=== PATIENT | female | born 1960 | race Caucasian/White ===

== ENCOUNTER → 2019-09-24 | Outpatient (CLI) | payer BC | LOC: LL.MAM 12:52 | PROVIDERS: ATTEND Nurse Practitioner | DX: Z12.31 Encounter for screening mammogram for malignant neoplasm of breast (principal) | CPT/HCPCS: 77063; 77067 ==

== ENCOUNTER 2020-06-24 08:00 | Day surgery (SDC) | payer BC ==
[~2020-06-24 08:00] MED LIST: Lactated Ringers 1,000 ML IV SCH; Midazolam 1 MG/ML 2 ML SDV ONE; Propofol 200 MG/20 ML SDV ONE; Sodium Chloride 0.9% 10 ML Syringe FLUSH PRN; fentaNYL 100 MCG/2 ML SDV ONE
[2020-06-24] MEDS ORDERED: Ketamine 500 mg/10 ML MDV ONE ×2 (08:17→09:22)
[2020-06-24] MEDS ORDERED: Midazolam 1 MG/ML 2 ML SDV ONE (09:22)
[2020-06-24] MEDS ORDERED: Ondansetron 4 MG/2 ML SDV ONE (09:22)
[2020-06-24] MEDS ORDERED: fentaNYL 100 MCG/2 ML SDV ONE (09:22)
[2020-06-24] MEDS ORDERED: Propofol 200 MG/20 ML SDV ONE (09:22)
--- NOTE | 2020-06-24 09:28 | PCM.HPR ---
H & P Addendum review - H & P Addendum Review Date of Original H & P: 06/10/20 Date Reviewed: 06/24/20 Time Reviewed: 09:27 Patient was Examined: No Changes
--- NOTE | 2020-06-24 10:00 | PCM.OPNOTE ---
- General Post-Op/Procedure Note Date of Surgery/Procedure: 06/24/20 Operative Procedure(s): L CTR Pre Op Diagnosis: L CTS Post-Op Diagnosis: Same Anesthesia Technique: Local, MAC Primary Surgeon: Julien ORTIZ in mLs: 0 Complications: None Condition: Good
[2020-06-24 10:20] VITALS: BP 130/81; PULSE 65
--- NOTE | 2020-06-28 11:14 | OR ---
Date of Procedure: 06/24/2020 PREOPERATIVE DIAGNOSIS: Left carpal tunnel syndrome. POSTOPERATIVE DIAGNOSIS: Left carpal tunnel syndrome. PROCEDURE: Left carpal tunnel release. ANESTHESIA: Local MAC. PROCEDURE IN DETAIL: Patient was brought to the operating room where IV sedation was administered. Left upper extremity was exsanguinated and tourniquet inflated. Her hand was prepped and draped sterilely. 4 mL of 1% lidocaine was used for local anesthesia. Palmar crease was infiltrated and an incision made over the ligament. Incision was extended through the subcutaneous tissue and palmar aponeurosis until the transverse carpal ligament was identified. The ligament was sharply incised until the median nerve was visible. The ligament was split distally into the palm and proximally into the wrist. Finger palpation and inspection revealed all constricting bands to be released. The wound was irrigated and closed with interrupted 4-0 Prolene vertical mattress sutures. Antibiotic ointment and a bulky sterile pressure dressing were applied. Patient tolerated the procedure well. Blood loss, none. She returned to postanesthesia in stable condition. ADELA SANZ MD /[id number]
== END 2020-06-24 11:20 | disposition home or self-care (01) ==
LOC: LL.SDS 08:00
PROVIDERS: ATTEND Surgery
DX: G56.02 Carpal tunnel syndrome, left upper limb (principal)
CPT/HCPCS: 01810; J2001; J2250; J2405; J2704; J3010; J7120

== ENCOUNTER 2020-08-05 07:58 | Day surgery (SDC) | payer BC ==
[2020-08-05] MEDS ORDERED: Sodium Chloride 0.9% 10 ML Syringe FLUSH PRN (08:00)
[2020-08-05] MEDS ORDERED: Lactated Ringers 1,000 ML IV SCH (08:00)
[2020-08-05] MEDS ORDERED: Midazolam 1 MG/ML 2 ML SDV ONE ×2 (08:39→09:28)
[2020-08-05] MEDS ORDERED: Propofol 200 MG/20 ML SDV ONE ×2 (08:39→09:28)
--- NOTE | 2020-08-05 09:39 | PCM.HP.2 ---
H&P History of Present Illness - General Date of Service: 08/05/20 Admit Problem/Dx: Admission Diagnosis/Problem Admission Diagnosis/Problem Carpal tunnel syndrome Source of Information: Patient, Old Records History Limitations: Reports: No Limitations - History of Present Illness Initial Comments - Free Text/Narative: Here for right carpel tunnel release - Related Data Allergies/Adverse Reactions: Allergies Allergy/AdvReac Type Severity Reaction Status Date / Time bacitracin Allergy [place] Verified 08/05/20 08:32 latex Allergy Rash Verified 08/05/20 08:32 moexipril Allergy Cough Verified 08/05/20 08:32 nitrofurantoin Allergy UNKNOWN Verified 08/05/20 08:32 [From Macrobid] nitrofurantoin Allergy UNKNOWN Verified 08/05/20 08:32 macrocrystalline [From Macrobid] prednisone Allergy UNKNOWN Verified 08/05/20 08:32 Sulfa (Sulfonamide Allergy UNKNOWN Verified 08/05/20 08:32 Antibiotics) Home Medications: Home Meds Esomeprazole Magnesium [Nexium] 40 mg PO DAILY 08/11/15 [History] Folic Acid/Vit B Complex and C [Dialyvite] 2 each PO DAILY 08/11/15 [History] Meloxicam 15 mg PO DAILY 08/11/15 [History] metFORMIN [Glucophage XR] 500 mg PO QPM 08/11/15 [History] Citalopram Hydrobromide [Celexa] 20 mg PO DAILY 06/24/20 [History] Famotidine [Pepcid] 40 mg PO BEDTIME 06/24/20 [History] Levothyroxine [Synthroid] 88 mcg PO DAILY 06/24/20 [History] Losartan [Cozaar] 50 mg PO DAILY 06/24/20 [History] Phentermine HCl 1 tab PO DAILY 06/24/20 [History] Rosuvastatin [Crestor] 5 mg PO BEDTIME 06/24/20 [History] metFORMIN HCl [Metformin HCl] 1,000 mg PO QAM 06/24/20 [History] Past Medical History HEENT History: Reports: Other (See Below) Other HEENT History: wears glasses Cardiovascular History: Reports: High Cholesterol, Hypertension Respiratory History: Reports: None Gastrointestinal History: Reports: Cholelithiasis, GERD Genitourinary History: Reports: None Other OB/BYN History: Cervical HPV test postive. Musculoskeletal History: Reports: Osteoarthritis Neurological History: Reports: None Psychiatric History: Reports: Anxiety Endocrine/Metabolic History: Reports: Diabetes, Type II Hematologic History: Reports: None Immunologic History: Reports: None Oncologic (Cancer) History: Reports: None Dermatologic History: Reports: None - Past Surgical History GI Surgical History: Reports: Cholecystectomy, Colonoscopy Female Surgical History: Reports: Section Musculoskeletal Surgical History: Reports: Carpal Tunnel Social & Family History - Tobacco Use Smoking Status *Q: Never Smoker - Caffeine Use Caffeine Use: Reports: Coffee, Tea - Recreational Drug Use Recreational Drug Use: No H&P Review of Systems - Review of Systems: Review Of Systems: Comprehensive ROS is negative, except as noted in HPI. Exam - Exam Exam: See Below - Vital Signs Vital Signs: Last Vital Signs Temp 98.4 F 08/05/20 08:53 Pulse 75 08/05/20 08:53 Resp 18 08/05/20 08:53 BP 165/81 H 08/05/20 08:53 Pulse Ox 98 08/05/20 08:53 Weight: 74.843 kg - Exam General: Alert, Oriented Lungs: Clear to Auscultation, Normal Respiratory Effort Cardiovascular: Regular Rate, Regular Rhythm Sepsis Event Note - Focused Exam Vital Signs: Vital Signs Temp Pulse Resp BP Pulse Ox 08/05/20 08:53 98.4 F 75 18 165/81 H 98 Problem List Initiated/Reviewed/Updated: Yes Orders Last 24hrs: Active Orders 24 hr Category Date Time Status Patient Status [ADT] Routine ADT 08/05/20 08:00 Active Peripheral IV Care [RC] . DIRECTED Care 08/05/20 08:00 Active Verify Patient Consent Obtain [RC] ASDIRECTED Care 08/05/20 08:00 Active Lactated Ringers [Ringers, Lactated] 1,000 ml Med 08/05/20 08:00 Active IV ASDIRECTED Sodium Chloride 0.9% [Saline Flush] Med 08/05/20 08:00 Active 10 ml FLUSH ASDIRECTED PRN Peripheral IV Insertion Adult [OM.PC] Routine Oth 08/05/20 08:00 Ordered Medication Orders Lactated Ringer's (Ringers, Lactated) 1,000 mls @ 125 mls/hr IV ASDIRECTED LEXX Last Admin: 08/05/20 08:51 Dose: 125 mls/hr Documented by: COXTAM Sodium Chloride (Saline Flush) 10 ml FLUSH ASDIRECTED PRN PRN Reason: Keep Vein Open Assessment/Plan Comment:: R CTS Will proceed with R CTR
--- NOTE | 2020-08-05 10:09 | PCM.OPNOTE ---
- General Post-Op/Procedure Note Date of Surgery/Procedure: 08/05/20 Operative Procedure(s): R CTR Pre Op Diagnosis: R CTS Post-Op Diagnosis: Same Anesthesia Technique: Local, MAC Primary Surgeon: Julien Covington Anesthesia Provider: Evelin Black EBMaritza in mLs: 0 Complications: None Condition: Good
--- NOTE | 2020-08-05 11:29 | OR ---
Date of Procedure: 08/05/2020 PREOPERATIVE DIAGNOSIS: Right carpal tunnel syndrome. POSTOPERATIVE DIAGNOSIS: Right carpal tunnel syndrome. PROCEDURE: Right carpal tunnel release. ANESTHESIA: Local MAC. BLOOD LOSS: None. PROCEDURE IN DETAIL: Patient was brought to the operating room where a time-out was performed. Surgical site had been initialed. Right hand and forearm were prepped with ChloraPrep and draped sterilely. After arm exsanguinated and tourniquet inflated, 4 mL of 1% lidocaine was infiltrated in the palmar crease. A routine incision was made in the crease and extended through the subcutaneous tissue and palmar aponeurosis until the transverse carpal ligament was identified. The ligament was sharply incised until the median nerve was visible. The ligament was split distally into the palm, then proximally into the wrist. Finger palpation and inspection revealed all constricting bands to be released. Wound was closed with interrupted 4-0 Ethilon vertical mattress sutures, sterile bulky pressure dressing was applied. Patient tolerated the procedure well. She returned to postanesthesia in stable condition. ADELA SANZ MD /[id number]
[2020-08-05 14:47] VITALS: BP 161/85; PULSE 74
== END 2020-08-05 11:26 | disposition home or self-care (01) ==
LOC: LL.SDS 07:58
PROVIDERS: ATTEND Surgery
DX: G56.01 Carpal tunnel syndrome, right upper limb (principal); E78.00 Pure hypercholesterolemia, unspecified; E11.9 Type 2 diabetes mellitus without complications; I10 Essential (primary) hypertension; Z79.890 Hormone replacement therapy; Z79.899 Other long term (current) drug therapy; Z88.1 Allergy status to other antibiotic agents; Z91.040 Latex allergy status; Z88.2 Allergy status to sulfonamides; Z88.8 Allergy status to other drugs, medicaments and biological substances; Z79.84 Long term (current) use of oral hypoglycemic drugs
CPT/HCPCS: J2001; J2250; J2704; J7120